=== PATIENT | male | born 1990 | race Caucasian/White ===

== ENCOUNTER 2024-10-06 04:21 | Emergency (ER) | payer BC, SELFPAY ==
[2024-10-06 04:22] VITALS: BMI 29.6
[2024-10-06 04:25] VITALS: BP 147/86
[2024-10-06 04:35] VITALS: BP 132/98
[2024-10-06 04:48] LABS: % Basophils 0.4 % (0-2); % Immature Granulocytes 0.5 % (0-0.5); % Lymphocytes 28.9 % (20.5-51.1); % Monocytes 8.1 % (1.7-9.3); % Neutrophils 60.1 % (42.2-75.2); Absolute Eosinophils 0.2 10^3/uL (0-0.7); Absolute Lymphocytes 2.3 10^3/uL (1.2-3.4); Absolute Monocytes 0.7 10^3/uL (0.1-0.6); Absolute Neutrophils 4.8 10^3/uL (1.4-6.5); Hematocrit 41.8 % (39.0-52.0); Hemoglobin 15.1 g/dL (13.0-18.0); Mean Corp Hgb Conc. 36.1 g/dL (33.0-37.0); Mean Corpuscular Hgb 30.8 pg (27.0-31.0); Mean Corpuscular Volume 85.3 fL (80.0-94.0); Mean Platelet Volume 9.4 fL (7.4-10.4); Nucleated Red Blood Cells % 0 % (-); Platelet Count 285 10^3/uL (130-400); Red Cell Dist. Width 11.9 % (11.5-14.5)
[2024-10-06 05:00] VITALS: BP 126/87
[2024-10-06 05:02] LABS: APTT 23.5 Sec (23.4-35.0); PT 12.7 Sec (11.4-14.6)
[2024-10-06 05:11] LABS: ALT (SGPT) 28 U/L (0-50); AST (SGOT) 28 U/L (17-59); Albumin 5.2 g/dl (3.5-5.0); Alkaline Phosphatase 71 U/L (38-126); Blood Urea Nitrogen 18 mg/dl (9-20); Calcium 10.4 mg/dl (8.4-10.2); Carbon Dioxide 24 mmol/L (22-30); Chloride 102 mmol/L (98-107); Estimated Creatinine Clearance 112 ml/min; Glucose 121 mg/dl (70-99); Potassium 3.8 mmol/L (3.5-5.1); Sodium 144 mmol/L (135-145); eGFR > 60.00
--- NOTE | 2024-10-06 05:22 | ED.GENMED ---
History of Present Illness
General
Chief Complaint: Chest Pain
Source: patient
Exam Limitations: none
Time Seen by Provider: 10/06/24 04:37
Nursing documentation reviewed up to this point in time: agreed with
History of Present Illness
History of Present Illness:
Pleasant 34-year-old male who presents with palpitations and substernal chest pain that has been present intermittently since last weekend. He states that the symptoms are waxed and waned. He came into the emergency department today because of
symptoms awakened him from sleep. Patient states that the palpitations are more present than absent. He denies any caffeine intake. Does not drink energy drinks. He does not smoke he does admit to occasional marijuana usage. He does not report
any increased stress. His sleep habits have been the same. He does not feel anxious .
Review of Systems
Review of Systems
Allergies reviewed?: Yes
All Other Systems: ROS reviewed and negative except as documented in HPI and ROS
Constitutional: Reports no symptoms
EENT: Reports no symptoms
Respiratory: Reports no symptoms
Cardiac: Reports chest pain
ABD/GI: Reports no symptoms
: Reports no symptoms
Musculoskeletal: Reports no symptoms
Skin: Reports no symptoms
Neurological: Reports no symptoms
Endocrine: Reports no symptoms
Hematologic/Lymphatic: Reports no symptoms
Psychiatric: Reports no symptoms
Phy Exam
General Physical Exam
General Presentation: moderate distress
General age: appears older than age
General Skin: warm and dry
General Habitus: debilitated and elderly
General Mental: anxious and usual mental status
General Hydration: appears well hydrated
ENT Exam
ENT Exam: EOMI, pharynx normal, neck supple and normocephalic
Eye Exam
Eye Exam: PERRL, cornea clear and conjunctiva normal
Cardiovascular Exam
Cardiovascular Exam: tachycardia
Pulmonary Exam
Pulmonary Exam: generalized wheezing (Left greater than right) and respiratory distress
Oxygen Status: oxygen 6 liters via NC
Cough: non productive cough
Respirations: accessory muscle use and moderate effort
Gastrointestinal Exam
Gastrointestinal Exam: normal bowel sounds, non tender, soft, no organomegaly, no pulsatile mass and non distended
Neurological Exam
Neurological Exam: speech normal
Musculoskeletal Exam
Musculoskeletal Exam: full ROM
Skin Exam
Skin Exam: normal color and warm/dry
Psychiatric Exam
Psychiatric Exam: labile
Scores
Heart Score for Chest Pain Patients
STEMI patient?: No
History: Slightly or Non-Suspicious
ECG: Normal
Age: </= 45 years
Risk Factors: No Risk Factors
Troponin: </= Normal Limit
Heart Score for Chest Pain Patients: 0
Heart Score Risk: 2.5% MACE over next 6 weeks
Course
Orders/Labs/Results
Orders:
Orders
10/06/24 04:28
Electrocardiogram (*1) Urgent
Reason for Study: Chest Pain
EKG- Treatment ONCE
10/06/24 04:38
CR Chest - 2 Views Urgent
Comment:
Reason For Exam: cp
10/06/24 04:40
Complete Blood Count/With Diff Urgent
Comprehensive Metabolic Panel Urgent
PTT Urgent
Prothrombin Time Urgent
TSH Urgent
Troponin I Urgent
10/06/24 05:47
0.9% Sodium Chloride 1000 ml [Nss] 1,000 ml IV BOLUS
Abnormal Lab Results
10/06/24
04:40
Absolute Monos (auto) 0.7 H 10^3/uL
(0.1-0.6)
Glucose 121 H mg/dl
(70-99)
Calcium 10.4 H mg/dl
(8.4-10.2)
Albumin 5.2 H g/dl
(3.5-5.0)
10/06/24 04:40
10/06/24 04:40
Vital Signs
Initial and Last Documented VS:
Initial Vital Signs
Temp Pulse Resp BP Pulse Ox
98.7 F 86 16 147/86 100
10/06/24 04:25 10/06/24 04:25 10/06/24 04:25 10/06/24 04:25 10/06/24 04:25
Last Documented Vital Signs
Temp Pulse Resp BP Pulse Ox
98.7 F 77 16 126/87 99
10/06/24 04:25 10/06/24 05:30 10/06/24 04:25 10/06/24 05:00 10/06/24 05:30
MDM/Problems Addressed
Differential Diagnosis Includes:
ACS, musculoskeletal chest pain, palpitations, costochondritis, GERD
Chronic conditions affecting care:
GERD
*EKG
Interpreted by ED Provider?: Yes
Interpretation: abnormal
Heart Rate: 75
Rate: normal
Rhythm: sinus and sinus arrhythmia
Gillespie: normal axis
Interval: normal interval
QRS Pattern: normal QRS
Ischemia: no ischemia
*Television Anchor Interpretation
Rate: normal
Interpretation: normal
Heart Rate: 82
Rhythm: sinus
*Critical Care Note
Total Time (30-74mins, 75-104mins- exclusive of procedures): Not Applicable
ED Attending Note
-
Portions of this chart may have been created with voice recognition software.� Occasional wrong word or��sound alike� substitutions may have occurred due to the inherent limitations of voice recognition software.
Discharge Plan
Departure
Patient Disposition: Home (Routine Discharge)
Date of Disposition: 10/06/24
Time of Disposition: 06:36
Patient with high blood pressure during this ER visit?: Yes
Condition: Good
Discharge Problem:
Heart palpitations, Chest pain
Instructions: Chest Pain DCA Follow Up, BLOOD PRESSURE
Prescriptions:
No Action
pantoprazole 40 mg Tablet,Delayed Release (Dr/Ec)
40 mg PO DAILY
Referrals:
Prakash Cox DO [Family Provider] -
Activity Restrictions/Additional Instructions:
It was a pleasure meeting you and taking part in your care. We hope for your continued healing and wellness.
Please read discharge instructions in their entirety. However, they are for general education and may not describe your exact diagnosis at discharge. Information on your ER visit and medical conditions were discussed with you along with appropriate
follow up information...
If indicated, please take your medications as instructed and indicated on discharge paperwork.
Please schedule a follow up appointment as directed. Call to schedule an appointment
Please return to the emergency department with ANY change in, persisting, or worsening of symptoms. If any of your symptoms do not improve, or persist, or become more severe within 6-12 hours, please return to the emergency department for further
care.
Please return to the emergency department if you develop a headache, neck pain/stiffness, fever greater than 100.4F, chest pain, shortness of breath, persistent nausea, vomiting, slurred speech, difficulty walking, numbness/tingling, weakness, signs
of infection or any other symptoms that are worrisome to you.
If you have any questions or concerns please do not hesitate to call the Hospital at or E-mail me directly at [email or web address]
Interventions
Interventions:
*Risk Screen - Suicide Last Done: 10/06/24 04:25
*General Assessment Last Done: 10/06/24 04:43
*Neglect/Abuse Screening Last Done: 10/06/24 04:25
*ED COVID-19 Vaccine History Last Done: 10/06/24 04:27
ED- Cardiac Assessment Last Done: 10/06/24 04:42
Discharge Date and Time
Print Language: BENGALI
[2024-10-06 05:23] LABS: Troponin I < 0.012 ng/ml
[2024-10-06 05:41] LABS: TSH 4.12 uIU/ml (0.47-4.68)
[2024-10-06] MEDS: NSS 1000 IV (05:51)
[2024-10-06 06:00] VITALS: BP 105/77
[2024-10-06 07:00] VITALS: BP 130/80
[2024-10-06 07:05] VITALS: BP 130/80
--- NOTE | 2024-10-06 07:05 | EDRN ---
the pt pressed the call cruz and this RN entered the pts room, IVF were finished, RAC #20 PIV was removed and pressure dressing was applied, VS WNL, no s/s of distress, no c/o chest pain currently, this RN will provide discharge instructions with
Dr. Robles
== END 2024-10-06 07:12 | disposition home or self-care (01) ==
LOC: EMR 04:21
PROVIDERS: EMERGENCY PHYSICIAN Student in an Organized Health Care Education/Training Program; FAMILY PHYSICIAN Family Medicine
DX: R00.2 Palpitations (principal); R07.89 Other chest pain
CPT/HCPCS: 99283; 96360; 71046; 80053; 84443; 84484; 85025; 85610; 85730; 93005

== ENCOUNTER → 2024-10-20 08:48 | Outpatient (REF) | payer BC, SELFPAY | LOC: RCS 08:48 | PROVIDERS: ATTENDING PHYSICIAN Internal Medicine Cardiovascular Disease | DX: R06.02 Shortness of breath (principal) | CPT/HCPCS: 93017; 93350 ==

== ENCOUNTER 2025-02-07 09:39 | Emergency (ER) | payer BC, SELFPAY ==
[2025-02-07 09:56] VITALS: BP 133/82
[2025-02-07] MEDS: TYLENOL 1000 MG PO (11:52)
[2025-02-07] MEDS: MOTRIN 600 MG PO (11:52)
--- NOTE | 2025-02-07 12:45 | ED.GENMED ---
History of Present Illness
General
Chief Complaint: Abdominal Pain
Source: patient
Exam Limitations: none
Time Seen by Provider: 02/07/25 11:00
Nursing documentation reviewed up to this point in time: agreed with
History of Present Illness
History of Present Illness:
The patient is a pleasant 34-year-old man who reports intermittent pain in his left groin area rating into his left testicle. Patient reports that his left testicular pain intensified today. He denies any difficulty urinating such as burning,
frequency or bleeding. He denies penile discharge. He is in a monogamous relationship and not worried about an STD. He denies trauma
Past History
Past History
ED Past Medical History: GERD
ED Past Surgical History: Orthopedic
Social History
Tobacco: Non-smoker
Alcohol: Other
Drug: None
Personal:
Living: with family
Employment: Employed
Family History
Family History: Other
Review of Systems
Review of Systems
Allergies reviewed?: Yes
All Other Systems: ROS reviewed and negative except as documented in HPI and ROS
Constitutional: Reports no symptoms
EENT: Reports no symptoms
Respiratory: Reports no symptoms
Cardiac: Reports no symptoms
ABD/GI: Reports abdominal pain
: Reports other
Musculoskeletal: Reports no symptoms
Skin: Reports no symptoms
Neurological: Reports no symptoms
Endocrine: Reports no symptoms
Hematologic/Lymphatic: Reports no symptoms
Psychiatric: Reports no symptoms
Phy Exam
Physical Exam
Physical Exam:
Physical Exam
General: no apparent distress, not acutely ill
Neck: supple.
Heart: s1/s2 regular rate and rhythm, no murmur. equal radial and femoral pulses bilaterally.
Lungs: no acute respiratory distress. clear bilaterally
Abdomen: normal bowel sounds. not tender. no CVAT. Strong bilateral femoral pulses. Abdomen is soft and nontender throughout. I do not feel any masses or tenderness in inguinal areas bilaterally. Scrotal area is not visibly
red, warm or swollen. Left testicle is tender to my touch.
Neuro: alert and oriented. no focal neurological deficits
Skin: no rash
Psychiatric: well kept. interactive and cooperative
Extremities: no edema. no calf tenderness. negative homans. good distal pulses
Course
Orders/Labs/Results
Orders:
Orders
02/07/25 11:42
Acetaminophen [Tylenol] 1,000 mg PO NOW STA
02/07/25 11:43
Ibuprofen [Motrin] 600 mg PO NOW STA
US Scrotum Urgent
Comment:
Reason For Exam: severe left groin and testicle pain
02/07/25 13:19
Urinalysis Reflex To Culture Urgent
Date Specimen was Collected: 02/07/25
Time Specimen was Collected: 12:30
02/07/25 14:30
Consult Urology [UROLOGY CONSULT] Urgent
Consulting Provider: Matthew Christina
Was physician already notified: Yes
Comment: severe left testicle pain
Vital Signs
Initial and Last Documented VS:
Initial Vital Signs
Temp Pulse Resp BP Pulse Ox
98.4 F 68 18 133/82 98
02/07/25 09:56 02/07/25 09:56 02/07/25 09:56 02/07/25 09:56 02/07/25 09:56
Last Documented Vital Signs
Temp Pulse Resp BP Pulse Ox
98.4 F 68 20 130/81 98
02/07/25 09:56 02/07/25 15:29 02/07/25 15:29 02/07/25 15:29 02/07/25 15:29
MDM/Problems Addressed
Differential Diagnosis Includes:
Acute testicular torsion, inguinal hernia, renal colic
MDM/Problems Addressed:
Patient presents with acute left testicular pain
Acute Exacerbation and/or Progression of Chronic Illness:
Patient is acutely hypertensive, likely due to anxiety being in the ED and pain
Acute Exacerbation and/or Progression of Chronic Illness: HTN
*Radiology
Radiology exam reviewed: radiology read reviewed
*Pulse Oximetry
Patient hypoxic: no
*EKG
Interpreted by ED Provider?: NA
*Tricot Knitter Interpretation
Rate: Tricot Knitter- N/A
*Critical Care Note
Total Time (30-74mins, 75-104mins- exclusive of procedures): Not Applicable
Data Reviewed
Source: patient
Patient Management
Social determinants of health affecting care: Living situation and Strong social support
Discussion with other providers: Other (Case discussed with Dr. Christina who agreed to evaluate the patient after his office hours today at 5 PM.)
Escalation/DeEscalation of care consider admission/obs:
Patient adamantly does not want a wait for Dr. Christina to come evaluate him. He reports that he has his [employer] basketball game and he does not want to miss it. I strongly encouraged that he stay in the hospital and explained that
there is still a chance of testicular torsion and losing his testicle. Patient understands this risk and states that he would rather see the urologist as an outpatient. I explained this is Dr. Christina who reports that his office will call the
patient and arrange follow-up in the office for this Wednesday. Patient has strong pulses in bilateral lower extremity. He has no sign of abdominal hernia or masses on exam.
ED Attending Note
-
Portions of this chart may have been created with voice recognition software.� Occasional wrong word or��sound alike� substitutions may have occurred due to the inherent limitations of voice recognition software.
Discharge Plan
Departure
Patient Disposition: Home (Routine Discharge)
Date of Disposition: 02/07/25
Time of Disposition: 15:05
Patient with high blood pressure during this ER visit?: Yes
Condition: Good
Covid-19: Not Applicable
Discharge Problem:
Left testicular pain
Prescriptions:
No Action
pantoprazole 40 mg Tablet,Delayed Release (Dr/Ec)
40 mg PO DAILY
Referrals:
Prakash Cox DO [Family Provider] -
Matthew Christina MD [Active] - (Call the office if you do not hear from them today)
Activity Restrictions/Additional Instructions:
Please return if your left testicular pain intensifies or if you get a fever. It is important that you follow-up with urology soon as possible. They should call you today to schedule an appointment for this Wednesday. If you do not hear from them
today, please give them a call.
Interventions
Interventions:
*Risk Screen - Suicide Last Done: 02/07/25 09:56
*General Assessment Last Done: 02/07/25 09:56
*Neglect/Abuse Screening Last Done: 02/07/25 09:56
*ED- Fall Risk Assessment Last Done: 02/07/25 11:15
*ED COVID-19 Vaccine History Last Done: 02/07/25 11:15
*Nursing Disposition Last Done: 02/07/25 15:31
ED-Male Genitourinary Assessment Last Done: 02/07/25 11:15
Discharge Date and Time
Discharge Date/Time: 02/07/25 15:32
Print Language: WELSH
[2025-02-07 13:49] LABS: Urine Albumin Negative (Neg - Trace); Urine Bilirubin Negative (Negative); Urine Character Clear (Clear); Urine Color Yellow; Urine Glucose Negative (Negative); Urine Ketone Negative (Negative); Urine Leukocyte Negative (Negative); Urine Nitrite Negative (Negative); Urine Occult Blood Negative (Negative); Urine Urobilinogen Negative (Neg - 1+)
[2025-02-07 15:29] VITALS: BP 130/81
== END 2025-02-07 15:32 | disposition home or self-care (01) ==
LOC: EMR 09:39
PROVIDERS: CONSULT PHYSICIAN Urology; EMERGENCY PHYSICIAN Emergency Medicine; FAMILY PHYSICIAN Family Medicine
DX: N50.812 Left testicular pain (principal); K21.9 Gastro-esophageal reflux disease without esophagitis; I10 Essential (primary) hypertension
CPT/HCPCS: 99284; 76870; 81003; 93976